=== PATIENT | male | born 1950 | race Caucasian/White ===

== ENCOUNTER 2017-03-11 11:59 | Emergency (ER) | payer MEDICARE ==
[~2017-03-11] VITALS: Ht 180.3 cm; Wt 135.7 kg
[~2017-03-11 11:59] MED LIST: LISI30TA5 PO; METF500T4 PO; SIMV40TA2 PO; ZOLP10TA5 PO
[2017-03-11 12:12] VITALS: BP 154/101; PULSE 88; RESP 18; O2SAT 97
--- NOTE | 2017-03-11 12:44 | ED.REPORT ---
HPI-Neurologic Deficit Date of Service Mar 11, 2017 ED Provider: Becca Dyer MD [place] is a 66 year old male with a hx of HTN, hyperlipidemia, and DM who presents to the ED from complaining of sudden weakness onset 2330 last night. Associated symptoms include trouble balancing. He states, " I just couldn 't get my legs to move." Per , he couldn't get out of bed to go to the bathroom at 0400 this morning and was shaking quite a bit. He was also slow to speak. Patient confirms he felt slow to respond and had trouble walking until this morning. He also reports a mild L sided headache and bilateral upper extremity tremors. His symptoms were resolved by mid morning. He denies vision changes, chest pain, or any other symptoms. None of his symptoms were lateralizing. He reports his symptoms felt similar to after he had a bad anxiety attack. He did not take his sleeping pill last night. Last night he drank more than his normal amount of alcohol and he has been under increasing stress. Nursing Notes Stated Complaint: DIZZINESS/SENT BY URGENT CARE Chief Complaint: Neuro Symptoms/ Deficits Nursing Notes Reviewed: Yes Allergies: Coded Allergies: No Known Allergies (Unverified Allergy, 08/09/10) Scheduled Lisinopril (Lisinopril) 30 Mg Tablet 30 MG PO DAILY Metformin (Metformin) 500 Mg Tablet 500 MG PO BID Simvastatin (Zocor) 40 Mg Tablet 40 MG PO HS Scheduled PRN Zolpidem (Zolpidem) 10 Mg Tablet 10 MG PO HS PRN PRN For Insomnia General Time Seen by Provider: 12:43 Chief Complaint Weakness leg... (Both) Hx Obtained From: Patient, Spouse Arrived By: Walk-in Sudden in Onset?: Yes Onset Occurred: 13 - 16 hours ago Symptom Duration: 5 - 8 hours Similar Sx Previous: Yes Past Medical History Past Medical History HTN DM GERD Hyperlipidemia Depression Past Surgical History None reported Smoking History Former Smoker Social History Alcohol Use: 3-5 per day Other Social History: Good social support, Ambulatory Status Independent Review of Systems Review of Systems Note: +trouble balancing, slow speech, bilat upper extremity tremors Cardiovascular: Denies: Chest pain Neurologic: Reports: Headache, Problem walking, Weakness, Denies: Vision change Complete sys rev & neg: except as marked. Physical Exam Initial Vital Signs Vital Signs (First) Date Time Temp Pulse Resp B/P Pulse Ox O2 Delivery O2 Flow Rate FiO2 03/11/17 12:12 36.8 88 18 154/101 97 Room Air Initial VS: Reviewed, Vital signs abnormal Neck: Full range of motion Abdomen / GI: Soft, Non-tender Skin: Warm, Dry Psychiatric: Mood/affect normal, Behavior normal, Normal thought content General/Constitutional: Awake, Alert, No acute distress Head / Eyes: Atraumatic, Normocephalic Several basal-cell spots on top of head Respiratory / Chest: Breath sounds = bilat, No respiratory distress Scattered minimal wheezes Cardiovascular: Heart rate NL, Regular rhythm, Heart sounds NL, No gallop, No murmurs, No rubs Neurologic: Oriented X3, Speech NL Able to stand, negative Romberg, able to stand on one leg and balance Interpretation & Diagnostics Lab Results Interpretation Result Diagram: 03/11/17 1230 03/11/17 1230 Test 03/11/17 12:30 White Blood Count 8.3th/mm3 (3.8-10.1) Red Blood Count 3.94mil/mm3 (4.40-5.80) Hemoglobin 12.8g/dL (13.8-17.2) Hematocrit 37.6% (41.0-50.0) Mean Corpuscular Volume 95.4fL (81-100) Mean Corpuscular Hemoglobin 32.5pg (27.0-35.0) Mean Corpuscular Hemoglobin Concent 34.0% (32.0-37.0) Red Cell Distribution Width 12.9% (12.3-15.4) Platelet Count 245bil/L (150-400) Neutrophils (%) (Auto) 80.6% (40-74) Lymphocytes (%) (Auto) 10.3% (14-46) Monocytes (%) (Auto) 7.8% (4-12) Eosinophils (%) (Auto) 0.8% (0-5) Basophils (%) (Auto) 0.4% (0-3) Prothrombin Time 10.5sec (8.1-12.5) Prothromb Time International Ratio 0.98ratio Activated Partial Thromboplast Time 28.0sec (22.8-33.0) Sodium Level 129mEq/L (134-144) Potassium Level 4.6mEq/L (3.5-5.2) Chloride Level 93mEq/L (97-108) Carbon Dioxide Level 22mmol/L (18-29) Blood Urea Nitrogen 23mg/dL (8-27) Creatinine 0.58mg/dL (0.76-1.27) Estimat Glomerular Filtration Rate 149mL/min (>59) Glucose Level 121mg/dL (60-99) Calcium Level 9.2mg/dL (8.5-10.1) Total Bilirubin 0.4mg/dL (0.0-1.2) Aspartate Amino Transf (AST/SGOT) 24U/L (0-50) Alanine Aminotransferase (ALT/SGPT) 20U/L (0-44) Alkaline Phosphatase 50U/L (25-160) Troponin T 0.010ug/L (0.0-0.011) Total Protein 7.4g/dL (6.4-8.4) Albumin 4.4g/dL (3.4-5.0) ECG Interpretation ECG Interpretation: Sinus rate 82 No ischemia Time: 13:09 Interpreted by: ED physician CT Head Interpretation IMPRESSION: No acute process. Dictated by: Dayne Mascorro M.D. on 03/11/2017 at 13:04 Approved by: Dayne Mascorro M.D. on 03/11/2017 at 13:04 Study: Head CT no contrast Interpretation / Wet Read by: Interpret - Radiologist Re-Eval/Medical Decision Re-Evaluation/Progress : Time of Eval: 13:42 )( Re-Eval Neurologic Exam: Alert Re-Evaluation/Progress Note: Discussed lab and imaging results. Discussed plan for discharge. Patient understands and agrees with plan. All questions addressed at this time. Counseled Regarding: Diagnosis, Lab results, Need for follow-up, When/why to return to ED Discharge & Departure Impression: Primary Impression: Hyponatremia Additional Impressions: Weakness Acute situational disturbance Alcohol use Ruled Out: Stroke, STEMI (ST elevation myocardial infarction), Arrhythmia Disposition: Home Discharge Condition All VS Reviewed: Yes Condition: Stable Additional Instructions: Thank you for coming to the emergency department today. I think your symptoms are due to a numer of things: -low sodium (salt) which may be caused by your hydrochlorothiazide. Drink just enough water to keep your mouth from being dry and keep your urine a pale yellow color. - too much alcohol yesterday. Limit your alcohol intake to 1-2 drinks a day, no more than 9 in a week. -anxiety - kids are great, but you worry about them if they are home, gone or coming home. Please STOP your hydrochlorthiazie You will need to see Dr Olson next week to recheck your blood (salt level) and make sure your blood pressure is OK without the hydrochlorothiazide. Do not take your Ambien tonight. You have what looks like a basal cell cancer on the top of your head. this is not life threatening but please discuss the spots on the top of your head with Dr. Olson so that you may have them removed. Return to the emergency department for any new or worsening symptoms. Referrals: Vance Olson MD (PCP) Scribe Attestation Portions of this note were transcribed by Pari Larkin. I, Dr. Dyer personally performed the history, physical exam and medical decision-making; I reviewed and confirmed the accuracy of the information in the transcribed note. Signed by: Geri Benton, 03/11/17 at 1404 copies to: Vance Olson MD, Shawna L MD Mar 11, 2017 12:44 PARI LARKIN Mar 11, 2017 13:17
[2017-03-11 12:47] LABS: BASOPHILS % (AUTO) 0.4 % (0-3); EOSINOPHILS % (AUTO) 0.8 % (0-5); MONOCYTES % (AUTO) 7.8 % (4-12); Mean Corpuscular Hemoglobin 32.5 pg (27.0-35.0); Mean Corpuscular Volume 95.4 fL (81-100); NEUTROPHILS % (AUTO) 80.6 % (40-74); Platelet Count 245 bil/L (150-400)
[2017-03-11 13:06] LABS: INR 0.98 ratio
--- NOTE | 2017-03-11 13:06 | DRSVH ---
PROCEDURE: CT BRAIN WITHOUT CONTRAST ([id number]) INDICATIONS: Stroke TECHNIQUE: Noncontrast 4.5 mm thick angled axial sections acquired from the foramen magnum to the vertex, with c oronal reformats. COMPARISON: None. FINDINGS: Image quality: Excellent. CSF spaces: Basal cisterns are patent. No extra-axial fluid collections. The ventricles are symmet faustina in size and shape. Brain: No intracranial bleeds or masses. There is cerebral volume loss for age, with resultant vent ricular and sulcal prominence. There are periventricular and deep white matter chronic small vessel ischemic changes. There is intracranial internal carotid artery atherosclerosis. Skull and face: Calvarium and visualized facial bones appear intact, without suspicious lesions. Sinuses: Visualized sinuses and mastoids are clear. IMPRESSION: No acute process. Dictated by: Dayne Mascorro M.D. on 03/11/2017 at 13:04 Approved by: Dayne Mascorro M.D. on 03/11/2017 at 13:04
[2017-03-11 13:12] LABS: TROPONIN T 0.01 ug/L (0.0-0.011)
[2017-03-11 13:43] VITALS: BP 146/83; PULSE 82; RESP 16; O2SAT 98
--- NOTE | 2017-03-11 14:07 | NUR ---
Evaluation completed. Please go to "Notes" then click on "Assessments and Notes" (bottom left corner of screen). Then select appropriate discipline tab on top of screen.
[2017-03-11 14:12] VITALS: BP 128/72; PULSE 84; RESP 19; O2SAT 92
== END 2017-03-11 14:10 | disposition home or self-care (01) ==
LOC: SED 11:59
DX: E87.1 Hypo-osmolality and hyponatremia (principal); R53.1 Weakness; F43.0 Acute stress reaction; R26.2 Difficulty in walking, not elsewhere classified; R47.89 Other speech disturbances; R51 Headache; R25.1 Tremor, unspecified; I10 Essential (primary) hypertension; E11.9 Type 2 diabetes mellitus without complications; K21.9 Gastro-esophageal reflux disease without esophagitis; E78.5 Hyperlipidemia, unspecified; F32.9 Major depressive disorder, single episode, unspecified; Z72.89 Other problems related to lifestyle; Z79.84 Long term (current) use of oral hypoglycemic drugs; Z87.891 Personal history of nicotine dependence
CPT/HCPCS: 36415; 70450; 80053; 84484; 85025; 85610; 85730; 92610; 93005; 99285; G8996; G8997; G8998